=== PATIENT | female | born 1975 | race African-American/Black ===

== ENCOUNTER 2017-02-09 17:25 | Emergency (ER) | payer OTHER ==
[~2017-02-09] VITALS: Ht 167.6 cm; Wt 136.1 kg
[~2017-02-09 17:25] MED LIST: AFRIN PUMPMIST15 ML NASB; ALBUTEROL0.09 MG/A1 INH; AMOXIL 875 MG875 MG PO; BENZONATATE200 MG PO; BUPROPION HYDR300 M1 PO; FLONASE120 SPRAY/ NASB; MEDROL DOSEPAK1 PAC PO; NASONEX0.05 MG/Ac NASB; OMEPRAZOLE40 MG PO; PREDNISONE 20MG20 MG PO; ROBITUSSIN W/CO10 ML PO; SKELAXIN800 MG PO; TESSALON PERLE100 MG PO; TRAMADOL50 MG PO; ZITHROMAX Z-PA250 M1 PO
--- NOTE | 2017-02-09 17:44 | ED HAND/WRIST INJURY COMPLAINT ---
See Addendum History of Present Illness General Chief Complaint: Laceration Procedure Stated Complaint: CUT BY RAZOR Source: patient Exam Limitations: no limitations Allergies Uncoded Allergies: CATS (08/19/15) Reconcile Medications Albuterol Sulfate (Albuterol Sulfate Hfa) 0.09 MG/Actuation SIRI 2 PUFF INH Q4- 6 PRN PRN SHORTNESS OF BREATH 90 MCG PER PUFF Amoxicillin (Amoxil 875 MG Tablets) 875 MG TAB 1 TAB PO BID SINUSITIS Benzonatate (Tessalon Perle) 100 MG SGL 1 CAP PO TID PRN COUGH Bupropion Hydrochloride (Bupropion Hydrochloride XL) 300 MG T24 1 TAB PO DAILY DEPRESSION (Reported) Metaxalone 800 MG TAB 1 TAB PO TID MUSCLE RELAXOR Methylprednisolone. (Medrol) 1 PAC PAC 1 PAC PO AD INFLAMMATION Mometasone Furoate (Nasonex) 0.05 MG/Actuation SPR 2 SPRAY NASB BID sinusitis Omeprazole 40 MG CAPSULE.DR 1 CAP PO DAILY GI (Reported) OXYMETAZOLINE HCL (Afrin) 15 ML SPR 2 SPRAY NASB BID sinusitis Use for only 3 days Prednisone 20 MG TAB 1 TAB PO BID BRONCHOSPASM TRAMADOL HCL (Tramadol) 50 MG TAB 1 TAB PO TID PRN PAIN Triage Nurses Notes Reviewed? 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 She was going through patient's belongings, reached into a bag and felt a sharp sensation to her left middle finger. She looked into the bag and there was an old shaving razor in the bag. There was no blood on the razor, it had not been used recently as the patient has been admitted for the last 3 days and Ms. Tian did not have any blood drawn from her finger. She has no pain at this time, injury occurred prior to arrival, she notified her supervisor tubing who recommended she come to the ER for evaluation of possible blood born pathogen exposure. She has no complaints at this time. (SACHA DANGELO) Vital Signs & Intake/Output Vital Signs & Intake/Output Vital Signs Date Time Temp Pulse Resp B/P Pulse O2 O2 Flow FiO2 Ox Delivery Rate 02/09 1804 98.0 86 18 158/81 98 Room Air (SACHA DANGELO) Past History Travel History Traveled to [place] past 21 day No Medical History Any Pertinent Medical History? see below for history Neurological: NONE EENT: NONE Cardiovascular: NONE Respiratory: NONE Gastrointestinal: NONE Hepatic: NONE Renal: NONE Musculoskeletal: NONE Psychiatric: NONE Endocrine: DM Surgical History Surgical History: non-contributory Psychosocial History What is your primary language Welsh Family History Hx Contributory? No (SACHA DANGELO) Review of Systems Review of Systems Constitutional: Reports: see HPI. EENTM: Reports: no symptoms. Respiratory: Reports: no symptoms. Cardiovascular: Reports: no symptoms. GI: Reports: no symptoms. Genitourinary: Reports: no symptoms. Musculoskeletal: Reports: no symptoms. Skin: Reports: no symptoms. Neurological/Psychological: Reports: no symptoms. Hematologic/Endocrine: Reports: no symptoms. Immunologic/Allergic: Reports: no symptoms. All Other Systems: Reviewed and Negative (SACHA DANGELO) Physical Exam Physical Exam Hand Left: 3rd finger Hand Right: normal inspection Comments: Well-developed well-nourished no apparent distress. HEENT: Atraumatic, extraocular motion intact Neck: Supple, no lymphadenopathy Back: Nontender Respiratory: No respiratory distress Extremities: No edema, full range of motion Neuro: Alert and oriented x3 Psych: Mood affect normal, normal memory normal judgment. Skin: Warm and dry, no rash on exposed skin Left hand middle finger with a very superficial 1.5 cm linear break in the superficial skin layers. There is no laceration, there is no bleeding, the wound is not deep enough to go through the skin layers. There is no erythema. Range of motion is full. (SACHA DANGELO) Progress Differential Diagnosis: abscess, cellulitis, contusion, compartment syndrome, dislocation, felon, fracture, gout, paronychia, septic arthritis, sprain, tenosynovitis Plan of Care: Patient did not have the blood borne pathogen exposure, this was an old razor with no blood on it and the superficial injury did not draw any blood from the patient. I'M not recommending any treatment or any prophylactic medication for possible exposure. This discussed in detail with the patient, she understands and agrees with plan. (SACHA DANGELO) Departure Departure Disposition: HOME OR SELF CARE Condition: Stable Clinical Impression Primary Impression: Finger injury Qualifiers: Encounter type: initial encounter Laterality: left Qualified Code: S69.92XA - Unspecified injury of left wrist, hand and finger(s), initial encounter Referrals: ANNETTE KING MD (PCP/Family) Additional Instructions: Watch for any signs of infection such as redness swelling discharge or pain. Return with any concerns. Departure Forms: Customer Survey General Discharge Information (SACHA DANGELO) PA/TRAVEL ASSISTANT Co-Sign Statement Statement: ED Attending supervision documentation- [] I saw and evaluated the patient. I have also reviewed all the pertinent lab results and diagnostic results. I agree with the findings and the plan of care as documented in the PA's/TRAVEL ASSISTANT's documentation. [x] I have reviewed the ED Record and agree with the PA's/TRAVEL ASSISTANT's documentation. [] Additions or exceptions (if any) to the PAs/TRAVEL ASSISTANT's note and plan are summarized below: [] (ISMAEL BRODY DO
[2017-02-09 18:04] VITALS: BP 158/81
== END 2017-02-09 18:21 ==
LOC: ERH 17:25
DX: S69.91XA Unspecified injury of right wrist, hand and finger(s), initial encounter (principal); W26.8XXA Contact with other sharp object(s), not elsewhere classified, initial encounter; Y93.89 Activity, other specified; Y92.239 Unspecified place in hospital as the place of occurrence of the external cause
CPT/HCPCS: 99282